=== PATIENT | male | born 1960 | race Caucasian/White ===

== ENCOUNTER 2017-06-28 16:54 | Emergency (ER) | payer BC ==
[~2017-06-28] VITALS: Ht 190.5 cm; Wt 98.1 kg
[~2017-06-28 16:54] MED LIST: OMEP20TA39 PO; ZOFR4TAB3 SL
[2017-06-28 17:07] VITALS: BP 147/68; PULSE 62; RESP 16; TEMP 98.4; O2SAT 96
[2017-06-28] MEDS ORDERED: OMEP20TA PO (17:20)
[2017-06-28] MEDS ORDERED: SODIUM CHLOR 0.9% 1000 ML INJ 1,000 ML IV SCH (17:25)
[2017-06-28] MEDS ORDERED: PANTOPRAZOLE SODIUM 40 MG VIAL IVP ONE (17:30)
[2017-06-28] MEDS ORDERED: MORPHINE SULFATE 4 MG/ML INJ IV PUSH ONE ×2 (17:30→18:30)
[2017-06-28] MEDS ORDERED: ONDANSETRON HCL 4 MG/2 ML VIAL IVP ONE (17:30)
[2017-06-28] MEDS ORDERED: SODIUM CHLORIDE 0.9% FLUSH 10 ML FLUSH IV FLUSH PRN (17:30)
--- NOTE | 2017-06-28 17:32 | PD ---
HPI Chief Complaint: Abdominal Pain Time Seen by Provider: 17:16 Travel History International Travel<30 days: No Contact w/Intl Traveler<30days: No Traveled to known affect area: No History of Present Illness HPI The patient is a 56-year-old male who presents to the emergency department for nausea, vomiting, and epigastric abdominal pain. The patient is a 2 week history of intermittent epigastric abdominal pain which is burning, nonradiating, similar to pain he had several years ago he was diagnosed with a hiatal hernia and peptic ulcer disease. The patient underwent an endoscopy and colonoscopy at that time he was diagnosed with a hiatal hernia and peptic ulcer. The patient was placed on sulcrafate and omeprazole that time and had significant improvement of his symptoms. The last several years the patient has taken himself off of his medications and was taking Pepcid twice a day. However, the patient's symptoms return to knee is been taking the omeprazole over the last 2 weeks. However, the patient developed nausea and vomiting yesterday and has been unable to tolerate his omeprazole. He states the vomiting is associated with nausea, but denies any diarrhea or black tarry colored stools or blood in the stools. He denies any chest pain, shortness breath, dysuria, frequency, or urgency. Symptoms are moderate, possibly exacerbated by history of peptic ulcer disease and hiatal hernia, and there are no current alleviating factors. PFSH Past Medical History Diminished Hearing: No Gastrointestinal Disorders: Yes (HIATAL HERNIA) GERD: Yes Ulcer: Yes Social History Alcohol Use: Yes ("COUPLE DRINKS PER WEEK") Tobacco Use: Yes (1 PPD) Substance Use: No Allergies-Medications (Allergen,Severity, Reaction): Coded Allergies: hydrocodone (Unverified Allergy, Intermediate, Itching, 04/19/17) Reported Meds & Prescriptions Reported Meds & Active Scripts Active Reported Omeprazole 20 Mg Tab 20 Mg PO DAILY Review of Systems Except as stated in HPI: all other systems reviewed are Neg General / Constitutional: No: Fever Cardiovascular: No: Chest Pain or Discomfort Respiratory: No: Shortness of Breath Gastrointestinal: Positive: Nausea, Vomiting, Abdominal Pain, No: Diarrhea Genitourinary: No: Dysuria Physical Exam Narrative GENERAL: Awake, alert, pleasant 56-year-old male appears his stated age and is actively vomiting when I first enter the room. SKIN: Focused skin assessment warm/dry. HEAD: Atraumatic. Normocephalic. EYES: No scleral icterus noted. ENT: No nasal bleeding or discharge. Mucous membranes pink and moist. NECK: Trachea midline. No JVD. CARDIOVASCULAR: Regular rate and rhythm. No murmur appreciated. RESPIRATORY: No accessory muscle use. Clear to auscultation. Breath sounds equal bilaterally. GASTROINTESTINAL: Abdomen soft, mild epigastric tenderness, no guarding or rigidity. MUSCULOSKELETAL: No obvious deformities. No clubbing. No cyanosis. No edema. NEUROLOGICAL: Awake and alert. No obvious cranial nerve deficits. Motor grossly within normal limits. Normal speech. PSYCHIATRIC: Appropriate mood and affect; insight and judgment normal. Data Data Last Documented VS Vital Signs Date Time Temp Pulse Resp B/P (MAP) Pulse Ox O2 Delivery O2 Flow Rate FiO2 06/28/17 17:07 98.4 62 16 147/68 (94) 96 Orders Orders Complete Blood Count With Diff (06/28/17 17:25) Comprehensive Metabolic Panel (06/28/17 17:25) Lipase (06/28/17 17:25) Lactic Acid (06/28/17 17:25) Iv Access Insert/Monitor (06/28/17 17:25) Ecg Monitoring (06/28/17 17:25) Oximetry (06/28/17 17:25) Morphine Inj (Morphine Inj) (06/28/17 17:30) Ondansetron Inj (Zofran Inj) (06/28/17 17:30) Pantoprazole Inj (Protonix Inj) (06/28/17 17:30) Sodium Chlor 0.9% 1000 Ml Inj (Ns 1000 M (06/28/17 17:25) Sodium Chloride 0.9% Flush (Ns Flush) (06/28/17 17:30) Chest, Single Ap (06/28/17 17:25) Morphine Inj (Morphine Inj) (06/28/17 18:30) Ondansetron Inj (Zofran Inj) (06/28/17 18:30) Labs Laboratory Tests Test 06/28/17 17:50 White Blood Count 10.7 TH/MM3 Red Blood Count 5.10 MIL/MM3 Hemoglobin 16.2 GM/DL Hematocrit 48.0 % Mean Corpuscular Volume 94.2 FL Mean Corpuscular Hemoglobin 31.7 PG Mean Corpuscular Hemoglobin Concent 33.7 % Red Cell Distribution Width 12.4 % Platelet Count 243 TH/MM3 Mean Platelet Volume 7.1 FL Neutrophils (%) (Auto) 74.4 % Lymphocytes (%) (Auto) 17.0 % Monocytes (%) (Auto) 5.6 % Eosinophils (%) (Auto) 0.1 % Basophils (%) (Auto) 2.9 % Neutrophils # (Auto) 8.0 TH/MM3 Lymphocytes # (Auto) 1.8 TH/MM3 Monocytes # (Auto) 0.6 TH/MM3 Eosinophils # (Auto) 0.0 TH/MM3 Basophils # (Auto) 0.3 TH/MM3 CBC Comment DIFF FINAL Differential Comment Blood Urea Nitrogen 16 MG/DL Creatinine 0.83 MG/DL Random Glucose 120 MG/DL Total Protein 7.4 GM/DL Albumin 4.1 GM/DL Calcium Level 8.9 MG/DL Alkaline Phosphatase 65 U/L Aspartate Amino Transf (AST/SGOT) 11 U/L Alanine Aminotransferase (ALT/SGPT) 23 U/L Total Bilirubin 1.1 MG/DL Sodium Level 136 MEQ/L Potassium Level 3.8 MEQ/L Chloride Level 104 MEQ/L Carbon Dioxide Level 24.9 MEQ/L Anion Gap 7 MEQ/L Estimat Glomerular Filtration Rate 96 ML/MIN Lactic Acid Level 1.5 mmol/L Lipase 141 U/L MDM Medical Decision Making Medical Screen Exam Complete: Yes Emergency Medical Condition: Yes Medical Record Reviewed: Yes Interpretation(s) Laboratory Tests Test 06/28/17 17:50 White Blood Count 10.7 TH/MM3 Red Blood Count 5.10 MIL/MM3 Hemoglobin 16.2 GM/DL Hematocrit 48.0 % Mean Corpuscular Volume 94.2 FL Mean Corpuscular Hemoglobin 31.7 PG Mean Corpuscular Hemoglobin Concent 33.7 % Red Cell Distribution Width 12.4 % Platelet Count 243 TH/MM3 Mean Platelet Volume 7.1 FL Neutrophils (%) (Auto) 74.4 % Lymphocytes (%) (Auto) 17.0 % Monocytes (%) (Auto) 5.6 % Eosinophils (%) (Auto) 0.1 % Basophils (%) (Auto) 2.9 % Neutrophils # (Auto) 8.0 TH/MM3 Lymphocytes # (Auto) 1.8 TH/MM3 Monocytes # (Auto) 0.6 TH/MM3 Eosinophils # (Auto) 0.0 TH/MM3 Basophils # (Auto) 0.3 TH/MM3 CBC Comment DIFF FINAL Differential Comment Blood Urea Nitrogen 16 MG/DL Creatinine 0.83 MG/DL Random Glucose 120 MG/DL Total Protein 7.4 GM/DL Albumin 4.1 GM/DL Calcium Level 8.9 MG/DL Alkaline Phosphatase 65 U/L Aspartate Amino Transf (AST/SGOT) 11 U/L Alanine Aminotransferase (ALT/SGPT) 23 U/L Total Bilirubin 1.1 MG/DL Sodium Level 136 MEQ/L Potassium Level 3.8 MEQ/L Chloride Level 104 MEQ/L Carbon Dioxide Level 24.9 MEQ/L Anion Gap 7 MEQ/L Estimat Glomerular Filtration Rate 96 ML/MIN Lactic Acid Level 1.5 mmol/L Lipase 141 U/L Chest x-ray reveals bibasilar atelectasis, otherwise unremarkable. Differential Diagnosis Differential diagnosis includes hiatal hernia, inferior MO, pancreatitis, gastritis, peptic ulcer disease, biliary colic, cholelithiasis, choledocholithiasis, esophagitis. Narrative Course IV was established, labs are drawn and sent, and the patient was placed on cardiac telemetry monitoring and continuous pulse oximetry monitoring. The patient was administered Protonix, morphine, Zofran, and IV fluids. Upright chest x-ray was obtained. Chest x-ray reveals bibasilar atelectasis, otherwise unremarkable. LFTs, lipase, white count, lactic acid are reassuring. Patient is reevaluated, his symptoms had improved, he still had mild epigastric discomfort. Therefore, the patient was redosed with morphine and Zofran. The patient is requesting a change to Protonix from his other prescription until he can be seen by his chief librarian music department. The patient be discharged home on Protonix, Zofran, and Percocet. He is advised to follow-up with his chief librarian music department return if symptoms worsen or progress. Diagnosis Primary Impression: Epigastric abdominal pain Additional Impression: Gastritis Qualified Codes: K29.00 - Acute gastritis without bleeding Patient Instructions: General Instructions, Narcotic given in the ED Additional Instructions: Stop Omeprazole. Medications as directed. Follow-up with your chief librarian music department. Clear liquid diet and advance as tolerated. Return if symptoms worsen or progress. Med/Other Pt SpecificInfo: Prescription(s) given, Med Stopped (stop omeprazole) Scripts Oxycodone-Acetaminophen (Percocet) 5-325 mg Tab 1 TAB PO Q6H Y for PAIN, #15 TAB 0 Refills Prov: Eusebio Garcia MD 06/28/17 Ondansetron Odt (Zofran Odt) 4 Mg Tab 4 MG SL Q6HR Y for Nausea/Vomiting, #10 TAB 0 Refills Prov: Eusebio Garcia MD 06/28/17 Pantoprazole (Protonix) 40 Mg Tab 40 MG PO DAILY for Ulcer Prevention, #30 TAB 0 Refills Prov: Eusebio Garcia MD 06/28/17 Disposition: 01 DISCHARGE HOME Condition: Stable Eusebio Garcia MD Jun 28, 2017 17:32
[2017-06-28 18:00] LABS: BASOPHIL # 0.3 TH/MM3 (0-0.2); BASOPHIL % 2.9 % (0.0-2.0); EOSINOPHIL % 0.1 % (0.0-4.0); HEMOGLOBIN 16.2 GM/DL (13.0-17.0); LYMPHOCYTE # 1.8 TH/MM3 (1.0-4.8); MEAN CELL VOLUME 94.2 FL (80.0-100.0); MEAN CORPUSCULAR HEMOGLOBIN 31.7 PG (27.0-34.0); MEAN CORPUSCULAR HGB CONC 33.7 % (32.0-36.0); MEAN PLATELET VOLUME 7.1 FL (7.0-11.0); MONO % 5.6 % (0.0-8.0); MONOCYTE # 0.6 TH/MM3 (0-0.9); NEUT % 74.4 % (16.0-70.0); PLATELET COUNT 243 TH/MM3 (150-450); RED CELL DISTRIBUTION WIDTH 12.4 % (11.6-17.2); WHITE BLOOD COUNT 10.7 TH/MM3 (4.0-11.0)
[2017-06-28 18:09] LABS: CHLORIDE 104 MEQ/L (98-107); SODIUM (NA) 136 MEQ/L (136-145)
[2017-06-28 18:12] LABS: ALBUMIN 4.1 GM/DL (3.4-5.0); BICARBONATE 24.9 MEQ/L (21.0-32.0); BLOOD UREA NITROGEN 16 MG/DL (7-18); CALCIUM 8.9 MG/DL (8.5-10.1); GLUCOSE,RANDOM 120 MG/DL (74-106); LIPASE 141 U/L (73-393)
[2017-06-28 18:15] LABS: ALT (GPT) 23 U/L (12-78); AST (GOT) 11 U/L (15-37); CREATININE 0.83 MG/DL (0.60-1.30); GLOMERULAR FILTRATION RATE 96 ML/MIN (>89)
[2017-06-28 18:17] LABS: TOTAL BILIRUBIN ADULT 1.1 MG/DL (0.2-1.0); TOTAL PROTEIN 7.4 GM/DL (6.4-8.2)
[2017-06-28 18:18] LABS: ALKALINE PHOSPHATASE 65 U/L (45-117)
--- NOTE | 2017-06-28 18:20 | RADRPT ---
EXAM DATE/TIME: 06/28/2017 18:06 [facility] COMPARISON: No previous studies available for comparison. INDICATIONS : Epigastric pain and vomiting. MEDICAL HISTORY : None. SURGICAL HISTORY : None. ENCOUNTER: Initial ACUITY: 2 days PAIN SCORE: 7/10 LOCATION: Bilateral chest FINDINGS: The lungs are clear without infiltrate, nodule, or mass except for slight atelectasis in both lung ba ses. There is no appreciable pleural effusion for technique. Heart and mediastinum are unremarkable . CONCLUSION: Slight bibasilar linear atelectasis. Eugenio Padilla MD on June 28, 2017 at 18:18 Board Certified Radiologist. This report was verified electronically.
[2017-06-28] MEDS ORDERED: ONDANSETRON HCL 4 MG/2 ML VIAL IV PUSH ONE (18:30)
[2017-06-28] MEDS ORDERED: PERC5TAB12 PO (18:33)
[2017-06-28] MEDS ORDERED: ZOFR4TAB3 SL (18:33)
[2017-06-28] MEDS ORDERED: PROT40TA PO (18:33)
[2017-06-28 18:50] VITALS: BP 127/61; PULSE 58; RESP 15; O2SAT 97
[2017-06-28 19:25] VITALS: BP 128/61; PULSE 64; RESP 14; O2SAT 97
== END 2017-06-28 19:39 | disposition home or self-care (01) ==
LOC: PHED 16:54
DX: K29.00 Acute gastritis without bleeding (principal); K44.9 Diaphragmatic hernia without obstruction or gangrene; F17.200 Nicotine dependence, unspecified, uncomplicated
CPT/HCPCS: 71010; 80053; 83605; 83690; 85025; 96361; 96374; 96375; 96376; 99284; C9113; J2270; J2405; J7030

== ENCOUNTER 2017-07-09 00:40 | Emergency (ER) | payer BC ==
[~2017-07-09] VITALS: Ht 190.5 cm; Wt 99.4 kg
[~2017-07-09 00:40] MED LIST changes: -OMEP20TA39 PO; +OMEP20TA93 PO; +PERC5TAB12 PO; +PROT40TA PO
[2017-07-09 00:44] VITALS: BP 136/78; PULSE 67; RESP 16; TEMP 98.2; O2SAT 96
[2017-07-09 01:49] VITALS: O2SAT 96
[2017-07-09 01:58] LABS: AUTOMATED NEUTROPHIL # 11.8 TH/MM3 (1.8-7.7); BASOPHIL # 0.3 TH/MM3 (0-0.2); BASOPHIL % 1.9 % (0.0-2.0); EOSINOPHIL # 0.1 TH/MM3 (0-0.4); EOSINOPHIL % 0.6 % (0.0-4.0); HEMATOCRIT 44.2 % (39.0-51.0); HEMO FLAGS DIFF FINAL; LYMPH % 15.1 % (9.0-44.0); LYMPHOCYTE # 2.3 TH/MM3 (1.0-4.8); MEAN CELL VOLUME 93.9 FL (80.0-100.0); MEAN CORPUSCULAR HEMOGLOBIN 32.3 PG (27.0-34.0); MEAN CORPUSCULAR HGB CONC 34.4 % (32.0-36.0); MONO % 5.8 % (0.0-8.0); NEUT % 76.6 % (16.0-70.0); PLATELET COUNT 269 TH/MM3 (150-450); RED BLOOD COUNT 4.71 MIL/MM3 (4.50-5.90); RED CELL DISTRIBUTION WIDTH 12.6 % (11.6-17.2); WHITE BLOOD COUNT 15.4 TH/MM3 (4.0-11.0)
[2017-07-09 02:05] LABS: CHLORIDE 103 MEQ/L (98-107); POTASSIUM 3.8 MEQ/L (3.5-5.1); SODIUM (NA) 138 MEQ/L (136-145)
[2017-07-09 02:09] LABS: ANION GAP 8 MEQ/L (5-15); BICARBONATE 27.1 MEQ/L (21.0-32.0); BLOOD UREA NITROGEN 19 MG/DL (7-18)
[2017-07-09 02:12] LABS: ALT (GPT) 23 U/L (12-78); AST (GOT) 11 U/L (15-37); GLOMERULAR FILTRATION RATE 69 ML/MIN (>89)
[2017-07-09 02:13] LABS: TOTAL BILIRUBIN ADULT 0.3 MG/DL (0.2-1.0)
[2017-07-09 02:15] LABS: ALKALINE PHOSPHATASE 65 U/L (45-117)
[2017-07-09 02:40] LABS: GLUCOSE,URINE NEG (NEG); KETONE, URINE TRACE mg/dL (NEG); NITRITE,URINE NEG (NEG); PH, URINE 6.5 (5.0-8.5)
[2017-07-09 02:42] LABS: BLOOD, URINE TRACE (NEG); URINE COLOR YELLOW (YELLW/STRAW)
[2017-07-09 02:44] LABS: RBC, URINE 0-3 /hpf (0-3); SQUAMOUS EPITHELIAL CELL URINE 0-5 /hpf (0-5); WBC, URINE 0-2 /hpf (0-5)
[2017-07-09 02:45] LABS: CALCIUM OXALATE CRYSTALS,URINE FEW /hpf; COMMENT (UR) CULT NOT INDICATED; CULTURE IF INDICATED CULT NOT INDICATED
[2017-07-09] MEDS ORDERED: SODIUM CHLOR 0.9% 1000 ML INJ 1,000 ML IV ONE (03:23)
[2017-07-09 03:26] VITALS: BP 139/72; PULSE 69; RESP 18; O2SAT 97
[2017-07-09] MEDS ORDERED: HYDROmorphone HCL PF 1 MG/ML VIAL IV PUSH ONE (03:30)
[2017-07-09] MEDS ORDERED: ONDANSETRON HCL 4 MG/2 ML VIAL IV PUSH ONE (03:30)
[2017-07-09] MEDS ORDERED: SODIUM CHLORIDE 0.9% FLUSH 10 ML FLUSH IVF PRN (03:30)
[2017-07-09] MEDS ORDERED: KETOROLAC TROMETHAMINE 30 MG/ML (IVP) VIAL IV PUSH ONE (03:30)
--- NOTE | 2017-07-09 03:31 | PD ---
HPI Chief Complaint: GI Complaint Time Seen by Provider: 03:08 Travel History International Travel<30 days: No Contact w/Intl Traveler<30days: No Traveled to known affect area: No History of Present Illness HPI The patient is a 56-year-old male that complained of left lower abdominal pain today starting at 2 PM. The pain is sharp and a 9/10 now. It is only on the left side. He denies any history kidney stones. He did have some nausea and vomited once. He does have a history of diverticulosis. PFSH Past Medical History Diminished Hearing: No Gastrointestinal Disorders: Yes (HIATAL HERNIA) GERD: Yes Ulcer: Yes Tetanus Vaccination: < 5 Years Influenza Vaccination: Yes Social History Alcohol Use: Yes ("COUPLE DRINKS PER WEEK") Tobacco Use: Yes (1 PPD) Substance Use: No Allergies-Medications (Allergen,Severity, Reaction): Coded Allergies: hydrocodone (Unverified Allergy, Intermediate, Itching, 07/09/17) Reported Meds & Prescriptions Reported Meds & Active Scripts Active Flomax (Tamsulosin HCl) 0.4 Mg Cap 0.4 Mg PO HS Percocet (Oxycodone-Acetaminophen) 5-325 mg Tab 1-2 Tab PO Q4H PRN Prochlorperazine Maleate 10 Mg Tab 10 Mg PO Q6H PRN Protonix (Pantoprazole Sodium) 40 Mg Tab 40 Mg PO DAILY Review of Systems Except as stated in HPI: all other systems reviewed are Neg Physical Exam Narrative GENERAL: The patient is alert, oriented 3 in moderate to severe distress with his left lower quadrant pain. His vital signs are normal. SKIN: Focused skin assessment warm/dry. HEAD: Atraumatic. Normocephalic. EYES: Pupils equal and round. No scleral icterus. No injection or drainage. ENT: No nasal bleeding or discharge. Mucous membranes pink and moist. NECK: Trachea midline. No JVD. CARDIOVASCULAR: Regular rate and rhythm. No murmur appreciated. RESPIRATORY: No accessory muscle use. Clear to auscultation. Breath sounds equal bilaterally. GASTROINTESTINAL: Abdomen soft, with minimal discomfort in the left UVJ/left lower quadrant to direct palpation, nondistended. Hepatic and splenic margins not palpable. No guarding or rebound is present. MUSCULOSKELETAL: No obvious deformities. No clubbing. No cyanosis. No edema. NEUROLOGICAL: Awake and alert. No obvious cranial nerve deficits. Motor grossly within normal limits. Normal speech. PSYCHIATRIC: Appropriate mood and affect; insight and judgment normal. Data Data Last Documented VS Vital Signs Date Time Temp Pulse Resp B/P (MAP) Pulse Ox O2 Delivery O2 Flow Rate FiO2 07/09/17 04:00 16 07/09/17 03:26 69 139/72 (94) 97 Room Air 07/09/17 00:44 98.2 Orders Orders Complete Blood Count With Diff (07/09/17 01:47) Comprehensive Metabolic Panel (07/09/17 01:47) Urinalysis - C+S If Indicated (07/09/17 01:47) Iv Access Insert/Monitor (07/09/17 01:47) Oxygen Administration (07/09/17 01:47) Oximetry (07/09/17 01:47) Lipase (07/09/17 01:47) Ecg Monitoring (07/09/17 03:23) Ketorolac Inj (Toradol Inj) (07/09/17 03:30) Ondansetron Inj (Zofran Inj) (07/09/17 03:30) Sodium Chloride 0.9% Flush (Ns Flush) (07/09/17 03:30) Sodium Chlor 0.9% 1000 Ml Inj (Ns 1000 M (07/09/17 03:23) Hydromorphone Pf Inj (Dilaudid Pf Inj) (07/09/17 03:30) Ct Abd/Pel W/O Iv Contrast (07/09/17 03:44) Tamsulosin (Flomax) (07/09/17 04:45) Labs Laboratory Tests Test 07/09/17 01:45 07/09/17 02:32 White Blood Count 15.4 TH/MM3 Red Blood Count 4.71 MIL/MM3 Hemoglobin 15.2 GM/DL Hematocrit 44.2 % Mean Corpuscular Volume 93.9 FL Mean Corpuscular Hemoglobin 32.3 PG Mean Corpuscular Hemoglobin Concent 34.4 % Red Cell Distribution Width 12.6 % Platelet Count 269 TH/MM3 Mean Platelet Volume 6.9 FL Neutrophils (%) (Auto) 76.6 % Lymphocytes (%) (Auto) 15.1 % Monocytes (%) (Auto) 5.8 % Eosinophils (%) (Auto) 0.6 % Basophils (%) (Auto) 1.9 % Neutrophils # (Auto) 11.8 TH/MM3 Lymphocytes # (Auto) 2.3 TH/MM3 Monocytes # (Auto) 0.9 TH/MM3 Eosinophils # (Auto) 0.1 TH/MM3 Basophils # (Auto) 0.3 TH/MM3 CBC Comment DIFF FINAL Differential Comment Blood Urea Nitrogen 19 MG/DL Creatinine 1.10 MG/DL Random Glucose 128 MG/DL Total Protein 7.2 GM/DL Albumin 4.1 GM/DL Calcium Level 9.1 MG/DL Alkaline Phosphatase 65 U/L Aspartate Amino Transf (AST/SGOT) 11 U/L Alanine Aminotransferase (ALT/SGPT) 23 U/L Total Bilirubin 0.3 MG/DL Sodium Level 138 MEQ/L Potassium Level 3.8 MEQ/L Chloride Level 103 MEQ/L Carbon Dioxide Level 27.1 MEQ/L Anion Gap 8 MEQ/L Estimat Glomerular Filtration Rate 69 ML/MIN Lipase 164 U/L Urine Color YELLOW Urine Turbidity CLEAR Urine pH 6.5 Urine Specific [place] 1.021 Urine Protein NEG mg/dL Urine Glucose (UA) NEG mg/dL Urine Ketones TRACE mg/dL Urine Occult Blood TRACE Urine Nitrite NEG Urine Bilirubin NEG Urine Leukocyte Esterase NEG Urine RBC 0-3 /hpf Urine WBC 0-2 /hpf Urine Squamous Epithelial Cells 0-5 /hpf Urine Calcium Oxalate Crystals FEW /hpf Urine Bacteria NONE /hpf Microscopic Urinalysis Comment CULT NOT INDICATED MDM Medical Decision Making Medical Screen Exam Complete: Yes Emergency Medical Condition: Yes Medical Record Reviewed: Yes Interpretation(s) The CT scan of the abdomen/pelvis without IV contrast shows a 3 mm distal left ureteral calculus at the UVJ with moderate left hydroureter and mild left hydronephrosis. There is also a 5 x 3 mm calculus in the upper pole of the left kidney. The urine shows trace ketones, trace occult blood with few calcium oxalate crystals and is otherwise negative and culture is not indicated. The complete metabolic profile shows a GFR of 69 but is otherwise normal. The lipase is normal. The CBC shows a white count of 15,400 but is otherwise unremarkable. Differential Diagnosis Left ureteral stone, diverticulitis, colitis, intestinal abscess-unlikely, urinary tract infection Narrative Course It is now 0444 and the patient is essentially pain-free. The abdomen is soft and nontender. He has likely passed this 3 mm left ureteral stone. Nevertheless, the patient will be given Flomax, Compazine and Percocet should the pain return. He should follow-up with urologist. He is told he has another 5 mm stone high in the left kidney. Physician Communication Physician Communication Follow-up with urology, as we discussed, you do have another stone in the left kidney that may come down. Decrease calcium intake because the stone was likely a calcium oxalate stone. Other things to cut back on peanut butter and spinach because they contain oxalates. Diagnosis Primary Impression: Left ureteral calculus Additional Instructions: Follow-up with urologist because you have another stone high in your left kidney. He might be able to put shoe on a diet that is low and calcium and oxalates. Also, drink increased amounts of liquids. I know you take Tums for your gastric pain but Tums contained calcium. Try Maalox/Mylanta in place of Tums. Med/Other Pt SpecificInfo: Prescription(s) given Scripts Tamsulosin (Flomax) 0.4 Mg Cap 0.4 MG PO HS for Manage Prostate Problems, #20 CAP 0 Refills Prov: Hussein Pollard MD 07/09/17 Oxycodone-Acetaminophen (Percocet) 5-325 mg Tab 1-2 TAB PO Q4H Y for PAIN, #20 TAB 0 Refills Prov: Hussein Pollard MD 07/09/17 Prochlorperazine Maleate (Prochlorperazine Maleate) 10 Mg Tab 10 MG PO Q6H Y for NAUSEA OR VOMITING, #20 TAB 0 Refills Prov: Hussein Pollard MD 07/09/17 Disposition: 01 DISCHARGE HOME Condition: Stable Hussein Pollard MD Jul 09, 2017 03:31
[2017-07-09 04:00] VITALS: RESP 16
--- NOTE | 2017-07-09 04:29 | RADRPT ---
EXAM DATE/TIME: 07/09/2017 03:51 [facility] COMPARISON: CT ABDOMEN & PELVIS W CONTRAST, March 10, 2014, 22:08. INDICATIONS : Severe left flank pain. ORAL CONTRAST: No oral contrast ingested. RADIATION DOSE: 16.79 CTDIvol (mGy) MEDICAL HISTORY : Diverticulosis. Ulcers. Gastroesophageal reflux disease.Hiatal hernia SURGICAL HISTORY : Fusion, lumbar. ENCOUNTER: Initial ACUITY: 1 day PAIN SCALE: 9/10 LOCATION: Left flank TECHNIQUE: Volumetric scanning of the abdomen and pelvis was performed. Using automated exposure control and ad justment of the mA and/or kV according to patient size, radiation dose was kept as low as reasonably achievable to obtain optimal diagnostic quality images. DICOM format image data is available electro nically for review and comparison. FINDINGS: LOWER LUNGS: The visualized lower lungs are clear. LIVER: Visualized portion within normal limits. Gallbladder unremarkable. SPLEEN: Normal size without lesion. PANCREAS: Within normal limits. KIDNEYS: 3 mm distal left ureteral calculus at the ureterovesical junction. Moderate diffuse left hydroureter. Mild periureteral stranding. Mild perinephric stranding. Mild left hydronephrosis. 5 mm x 3 mm calcu vini in the upper pole of the left kidney. No right-sided renal or ureteral calculi. ADRENAL GLANDS: Within normal limits. VASCULAR: There is no aortic aneurysm. BOWEL/MESENTERY: The stomach, small bowel, and colon demonstrate no acute abnormality. There is no free intraperitone al air or fluid. ABDOMINAL WALL: Within normal limits. RETROPERITONEUM: There is no lymphadenopathy. BLADDER: No wall thickening or mass. REPRODUCTIVE: Within normal limits. INGUINAL: There is no lymphadenopathy or hernia. MUSCULOSKELETAL: Mixed lucent and sclerotic bone lesion of the left femoral neck measuring 4.3 cm in greatest axial di mension unchanged. CONCLUSION: 1. 3 mm distal left ureteral calculus at the UVJ with moderate left hydroureter and mild left hydrone phrosis. 2. Left upper pole renal calculus. Jorge Alberto Marmolejo MD on July 09, 2017 at 4:23 Board Certified Radiologist. This report was verified electronically.
[2017-07-09] MEDS ORDERED: PROC10TA PO (04:43)
[2017-07-09] MEDS ORDERED: PERC5TAB12 PO (04:43)
[2017-07-09] MEDS ORDERED: TAMS5CAP PO (04:43)
[2017-07-09 04:44] VITALS: BP 140/66
[2017-07-09] MEDS ORDERED: TAMSULOSIN HCL 0.4 MG CAP PO ONE (04:45)
== END 2017-07-09 04:58 | disposition home or self-care (01) ==
LOC: PHED 00:40
DX: N13.2 Hydronephrosis with renal and ureteral calculous obstruction (principal); K21.9 Gastro-esophageal reflux disease without esophagitis; F17.200 Nicotine dependence, unspecified, uncomplicated
CPT/HCPCS: 74176; 80053; 81001; 83690; 85025; 96361; 96374; 96375; 99285; J1170; J1885; J2405; J7030